=== PATIENT | female | born 1995 | race Hispanic/Latino ===

== ENCOUNTER 2019-04-13 00:37 | Inpatient (IN) | payer BC ==
[2019-04-13] MEDS ORDERED: Morphine 4 MG/ML VIAL ONE (01:16)
[2019-04-13] MEDS ORDERED: Ondansetron PF 4 MG/2 ML Vial ONE ×3 (01:17→10:23)
[2019-04-13 01:21] LABS: #Basophils 0.1 thou/uL (0.0-0.2); #Eosinphils 0.3 thou/uL (0.0-0.7); #Monocytes 0.9 thou/uL (0.11-0.59); #Neutrophils 6.2 thou/uL (1.40-6.50); %Eosinophils 2.3 % (0.0-10.0); %Neutrophils 53.7 % (42.0-75.0); Hemoglobin 13.2 g/dL (12.0-16.0); Mean Corpuscular HGB CONC 33.6 g/dL (32.0-36.0); Mean Corpuscular Hemoglobin 30.7 pg (27.0-31.0); Mean Corpuscular Volume 91.6 fL (78.0-98.0); Platelet Count 277 thou/uL (130-400); RBC Distribution Width 10.9 % (11.5-14.5); Red Blood Cell (RBC) Count 4.31 mill/uL (4.20-5.40); White Blood Cell (WBC) Count 11.5 thou/uL (4.8-10.8)
[2019-04-13 01:27] LABS: BHCG - Serum Negative (NEGATIVE); Pregs Control Background? CLEAR/WHITE (CLR/WHITE); Pregs Control Bar Appear? YES (CONTROL BAR)
[2019-04-13 01:43] LABS: ALT (SGPT) 18 U/L (8-55); AST (SGOT) 17 U/L (5-34); Albumin 4.2 g/dL (3.5-5.0); Alkaline Phosphatase 47 U/L (40-110); Anion Gap 12 mmol/L (10-20); BUN (Urea Nitrogen) 11 mg/dL (7.0-18.7); Bilirubin, Total 0.2 mg/dL (0.2-1.2); Calc. Creatinine Clearance 0 mL/min (70-130); Calcium 9.3 mg/dL (7.8-10.44); Carbon Dioxide 23 mmol/L (22-29); Chloride 108 mmol/L (98-107); Estimated GFR-MDRD Greater than 90; Globulin 3.3 g/dL (2.4-3.5); Glucose 103 mg/dL (70-105); Lipase 24 U/L (8-78); Potassium 3.5 mmol/L (3.5-5.1); Protein, Total 7.5 g/dL (6.0-8.3); Sodium 139 mmol/L (136-145)
[2019-04-13 02:09] LABS: Bilirubin Negative (Negative); Blood, Urine Negative (Negative); Clarity Clear (Clear); Glucose, Urine (Dipstick) Normal (Negative); Leukocyte 75 Leu/uL (Negative); Nitrite Negative (Negative); Protein, Urine (Dipstick) Negative (Neg-Trace); RBC/HPF 0-3 HPF (0-3); Urobilinogen Normal mg/dL (Less than 2)
[2019-04-13 02:12] LABS: Bacteria/HPF 1+ HPF (None Seen)
[2019-04-13] MEDS ORDERED: Promethazine HCl 25 MG/ML VIAL ONE ×2 (03:00→03:01)
[2019-04-13] MEDS ORDERED: Ketorolac Tromethamine 30 MG/ML VIAL ONE ×2 (03:00→10:23)
[2019-04-13] MEDS ORDERED: Sodium Chloride 0.9% 100 ML ONE (04:22)
[2019-04-13] MEDS ORDERED: Piperacillin/Tazobactam 3.375 GM VIAL ONE (04:22)
[2019-04-13] MEDS ORDERED: FLU VACC QS2019-20(6MOS UP)/PF 60 MCG/0.5 ML SYRINGE IM ONE (06:30)
[2019-04-13] MEDS ORDERED: Fentanyl 100 MCG/2 ML VIAL ONE (06:43)
[2019-04-13] MEDS ORDERED: Midazolam HCl 2 mg/2 ml Vial ONE (06:43)
[2019-04-13] MEDS ORDERED: Lidocaine 1% w/Epinephrine 1:100K 20 ML VIAL ONE (06:57)
[2019-04-13] MEDS ORDERED: Bupivacaine PF 0.5% 30 ML VIAL ONE (06:57)
--- NOTE | 2019-04-13 07:16 | HP ---
HISTORY OF PRESENT ILLNESS: Natalie Greer is a 23-year-old female from [place], [facility] [employer], onset pain yesterday, right lower quadrant. She suffered anorexia, increased pain with movement and nausea. She presented to the emergency room, noted to have a white count of 11 and hemoglobin 13. test negative. Comprehensive metabolic profile normal with CAT scan supporting physical findings of acute appendicitis. ALLERGIES: NONE. SOCIAL HISTORY: Tobacco, none. Alcohol, rarely. MEDICATIONS: None routinely. PAST MEDICAL HISTORY: Noncontributory. PAST SURGICAL HISTORY: Noncontributory. REVIEW OF SYSTEMS: Noncontributory. PHYSICAL EXAMINATION: VITAL SIGNS: Temperature 98.1 degrees, pulse 89, and blood pressure 109/65. HEAD, EARS, EYES, NOSE, AND THROAT: Unremarkable. Sclerae are nonicteric. SKIN: Nonjaundiced. LYMPHATICS: No lymphadenopathy in neck, axilla, or groin is neurologically intact. LUNGS: Clear to auscultation. CARDIAC: Regular rate and rhythm without murmur or gallop. ABDOMEN: Soft. Tenderness in right lower quadrant. No guarding or rebound. Positive Rovsing's. EXTREMITIES: Unremarkable. No ankle edema. ASSESSMENT AND PLAN: Acute appendicitis. We recommend laparoscopic video appendectomy. Risks of infection, bleeding, visceral injury, reoperation, and open procedure discussed, questions answered. Job ID: [id number]
--- NOTE | 2019-04-13 07:34 | CT ---
PRELIMINARY REPORT/[facility]/EMERGENCY AFTER HOURS PROCEDURE: Receipt of this report by the clinical staff was confirmed with Nanci Prado RN by Britany Dunlap on Apr 13, 2019 04:16:00 [employer]. Addendum electronically signed by Britany Dunlap on April 13, 2019 4:17:03 AM PROJECT/PRODUCTION MANAGER IMAGING CT ABDOMEN PELVIS W CON History: F23 presents to ED c/o RLQ abd pain onset 1 hour ago. Pt reports she felt like it was a stom ach ache at first, and she took pepto bismol, but it worsened. Pt reports stabbing, constant, 10/10 pain. Pt reports she has not felt pain like this before. Comparison: None Findings: No acute process in the lung bases. Cardiac size within normal limits. Abdominal aorta is normal in caliber. No acute vascular abnormality. Kidneys enhance symmetrically. Urinary bladder is unremarkable. No evidence of hydronephrosis. 10 mm cyst versus small hemangioma in the posterior right hepatic lobe. Punctate cholelithiasis at the gallbladder fundus versus punctate wall calcification. Gallbladder is otherwise unremarkable. The spleen, pancreas and adrenal glands are w ithin normal limits. No evidence of small bowel obstruction or free intraperitoneal air. The retrocecal appendix is dilated and inflamed, measuring up to 8-9 mm, with periappendiceal fat strandi ng. No evidence of drainable fluid collection or abscess. A diaphragm is seen within the vaginal wall. There is a large right ovarian cyst measuring 5.3 x 4.3 x 5.5 cm. Small amount of free fluid in the pelvis. No acute osseous abnormality. Impression: 1. Findings compatible with acute appendicitis. No evidence of small bowel obstruction, free air or drainable fluid collection or abscess. 2. Large right ovarian cyst with small amount of free fluid in the cul-de-sac. Followup per final report recommendations. 3. Punctate wall calcification versus cholelithiasis at the gallbladder fundus. 4. Additional findings, as above. ELECTRONICALLY SIGNED BY: Nav Mckinney DO Apr 13, 2019 4:12:41 AM PROJECT/PRODUCTION MANAGER IMAGING FINAL REPORT: CT ABDOMEN AND PELVIS WITH IV AND ORAL CONTRAST: DATE: 04/13/2019. TIME: Performed on an emergency basis at 0322 hours. HISTORY: Right lower quadrant pain. FINDINGS: Agree with the preliminary report by Dr. Mckinney from [facility]. Evidence of acute appendicit is. Small gallstone adherent to the anterior gallbladder fundal wall. Low-density lesion within the posterior segment right liver lobe likely represents a hemangioma. Small amount of gastroesophageal r eflux. Large right ovarian cyst. Transcribed Date/Time: 04/13/2019 7:59 AM
[2019-04-13] MEDS ORDERED: Ondansetron PF 4 MG/2 ML Vial IVP PRN (08:19)
[2019-04-13] MEDS ORDERED: Ondansetron ODT 8 MG TAB SL PRN (08:19)
[2019-04-13] MEDS ORDERED: Ondansetron ODT 8 MG TAB PO PRN (08:19)
[2019-04-13] MEDS ORDERED: Ondansetron ODT 4 MG TAB PO PRN (08:19)
[2019-04-13] MEDS ORDERED: traMADol HCl 50 MG TAB PO PRN ×2 (08:19)
[2019-04-13] MEDS ORDERED: Ibuprofen 600 MG TAB PO PRN (08:19)
[2019-04-13] MEDS ORDERED: Ondansetron HCl/PF 4 MG/2 ML Vial IVP PRN (08:27)
[2019-04-13] MEDS ORDERED: Promethazine HCl 25 MG/ML VIAL SLOW IVP PRN (08:27)
[2019-04-13] MEDS ORDERED: Promethazine HCl 25 MG/ML VIAL IM PRN (08:27)
[2019-04-13] MEDS ORDERED: Sodium Chloride 0.9% 1,000 ML IV SCH (08:30)
[2019-04-13] MEDS ORDERED: Acetaminophen 500 MG TAB PO SCH (09:00)
[2019-04-13] MEDS ORDERED: Dexamethasone 20 MG/5 ML VIAL ONE (10:23)
[2019-04-13] MEDS ORDERED: PROPOFOL 200 MG/20 ML VIAL ONE (10:23)
[2019-04-13] MEDS ORDERED: Rocuronium Bromide 10 MG/ML (10ML VIAL) ONE (10:23)
[2019-04-13] MEDS ORDERED: Glycopyrrolate 0.2 MG/ML 5 ML SYRINGE ONE (10:23)
[2019-04-13] MEDS ORDERED: Succinylcholine Chloride 20 MG/ML 10 ml SYRINGE FS ONE (10:23)
--- NOTE | 2019-04-13 10:43 | OP ---
DATE OF PROCEDURE: 04/13/2019 PREOPERATIVE DIAGNOSIS: Acute appendicitis. POSTOPERATIVE DIAGNOSIS: Acute appendicitis. PROCEDURE PERFORMED: Laparoscopic video appendectomy. ANESTHESIA: General, local of 0.5% Marcaine 30 mL mixed with 1% Xylocaine with epinephrine 20 mL, 30 mL volume used. DESCRIPTION OF PROCEDURE: The patient was taken to the operating room, where under general anesthesia, Bowers catheter was placed at the beginning of the procedure and removed at the end. Abdomen was prepared with ChloraPrep and draped in routine fashion. Local anesthetic mixture was infiltrated into the skin and subcutaneous tissue about each port site. An infraumbilical incision was made. Pneumoperitoneum to 15 mmHg was obtained with a Veress needle, replaced with a 5 port, video laparoscope inserted. Right lateral subcostal incision was made and a 5 port placed and suprapubic incision made and a 12 port placed. Appendix was acutely inflamed. Mesoappendix was taken down with the LigaSure and stump of the appendix divided with Endo PAULETTE blue load stapler. Stapled cecal stump was hemostatic and secured with 2 clips placed in one area that was oozing. Hemostasis was noted. Irrigant and pneumoperitoneum were evacuated. Appendix was submitted to Pathology. Suprapubic fascia was approximated with 0 Vicryl. Skin incisions were approximated with subdermal 4-0 Monocryl and [place] glue applied. The patient tolerated the procedure well. Job ID: [id number]
[2019-04-13 11:47] VITALS: BP 105/56; TEMP 99.2
--- NOTE | 2019-04-13 11:47 | DIS ---
DATE OF ADMISSION: 04/13/2019 DATE OF DISCHARGE: Natalie Greer is a 23-year-old female, who presents with a history and exam consistent with appendicitis. CAT scan confirmed. Given intravenous fluids and antibiotics, taken to the operating room for laparoscopic video appendectomy. Postoperatively, discharged home. To take Tylenol, Motrin, Ultram p.r.n. pain. Diet and activity as tolerated. No lifting restrictions. Follow up in the office in 1 to 2 weeks. Job ID: [id number]
[2019-04-13] MEDS ORDERED: Iopamidol-370 76% 500 ML 1 ML ONE (12:47)
== END 2019-04-13 12:35 | disposition home or self-care (01) | DRG 343 ==
LOC: ERS 00:37 → EDBD 00:37 → ERHOLD 04:29 → 3SE 05:58
PROVIDERS: ADMIT Specialist; ATTEND Specialist
PROC: 0DTJ4ZZ Resection of Appendix, Percutaneous Endoscopic Approach (ICD-10-PCS; principal; 2019-04-13)
DX: K35.80 Unspecified acute appendicitis (principal)
CPT/HCPCS: 74177; 80053; 81003; 81015; 83690; 84703; 85025; 88304; 93005; 96361; 96365; 96367; 96375; J1100; J1885; J2250; J2270; J2405; J2543; J2550; J2704; J3010; J3490; Q9967; S0020

== ENCOUNTER 2021-01-31 00:27 | Emergency (ER) | payer BC | END 2021-01-31 02:39 | disposition home or self-care (01) | LOC: ERS 00:27 | DX: J11.1 Influenza due to unidentified influenza virus with other respiratory manifestations (principal) | CPT/HCPCS: 71045 ==